=== PATIENT | female | born 1995 | race African-American/Black ===

== ENCOUNTER 2018-01-30 18:42 | Emergency (ER) | payer OTHER ==
[~2018-01-30] VITALS: Ht 157.5 cm; Wt 68.5 kg
[2018-01-30] MEDS ORDERED: NORFLEX100 MG PO (21:20)
[2018-01-30] MEDS ORDERED: NAPROSYN500 MG PO (21:20)
[2018-01-30 21:32] VITALS: BP 119/63
== END 2018-01-30 21:33 | disposition home or self-care (01) ==
LOC: ER 18:42
DX: S16.1XXA Strain of muscle, fascia and tendon at neck level, initial encounter (principal); S29.012A Strain of muscle and tendon of back wall of thorax, initial encounter; V89.2XXA Person injured in unspecified motor-vehicle accident, traffic, initial encounter; Y92.89 Other specified places as the place of occurrence of the external cause; Y93.89 Activity, other specified; Y99.8 Other external cause status

== ENCOUNTER 2018-02-11 12:09 | Emergency (ER) | payer OTHER ==
[~2018-02-11] VITALS: Ht 157.5 cm; Wt 59.0 kg
[~2018-02-11 12:09] MED LIST: NAPROSYN500 MG PO; NORFLEX100 MG PO
[2018-02-11] MEDS ORDERED: IBUPROFEN 600600 M1 PO (13:13)
[2018-02-11 13:29] VITALS: BP 120/67
== END 2018-02-11 13:29 | disposition home or self-care (01) ==
LOC: ER 12:09
DX: F07.81 Postconcussional syndrome (principal); R51 Headache

== ENCOUNTER 2019-05-30 20:46 | Emergency (ER) | payer OTHER ==
[~2019-05-30] VITALS: Ht 157.5 cm; Wt 71.2 kg
[~2019-05-30 20:46] MED LIST changes: +IBUPROFEN 600600 M1 PO
[2019-05-30] MEDS ORDERED: NOHOMEMEDICATIONS (20:58)
[2019-05-30 22:55] VITALS: BP 103/51
== END 2019-05-30 22:50 | disposition home or self-care (01) ==
LOC: ER 20:46
DX: S06.0X0A Concussion without loss of consciousness, initial encounter (principal); M54.2 Cervicalgia; X58.XXXA Exposure to other specified factors, initial encounter; Y93.89 Activity, other specified; Y92.89 Other specified places as the place of occurrence of the external cause; Y99.8 Other external cause status